=== PATIENT | female | born 1975 | race Caucasian/White ===

== ENCOUNTER → 2021-08-18 | Outpatient (CLI) | payer OTHER ==
[~2021-08-18] MED LIST: CIPRO500 MG PO; CLONAZEPAM0.5 MG PO; CODE1TAB37 PO; INDERAL LA80 MG PO; LEVSIN/SL0.125 MG PO; METFORMIN HCL500 MG PO; PROPANOLOL PO; PROPRANOLOL HCL10 MG PO; PROVENTIL HFA6.7 GM IH; SYNTHROID50 MCG PO
== END | disposition home or self-care (01) ==
LOC: SONOGRAMA 10:15
PROVIDERS: ATTEND Pathology Anatomic Pathology & Clinical Pathology
DX: R59.1 Generalized enlarged lymph nodes (principal)